=== PATIENT | male | born 1970 | race Caucasian/White ===

== ENCOUNTER 2024-05-11 13:36 | Inpatient (IN) | payer BC, SELFPAY ==
[2024-05-11] VITALS (11 sets, daily range): BP systolic 105–129; BP diastolic 72–99
--- NOTE | 2024-05-11 12:30 | ED.GENMED ---
History of Present Illness
General
Chief Complaint: Chest Pain
Source: patient
Exam Limitations: none
Time Seen by Provider: 05/11/24 12:29
Nursing documentation reviewed up to this point in time: agreed with
History of Present Illness
History of Present Illness:
53-year-old male presents emergency room complaining of chest pain began around 2 AM. It woke him from sleep. He continues with chest pain that is a dull ache. No prior medical history. He states he does not follow with a doctor. STEMI alert
called by Dr. Acosta upon reviewing EKG.
Past History
Past History
ED Past Medical History: None
ED Past Surgical History: Orthopedic (Right knee surgery arthroscopic)
Social History
Tobacco: Non-smoker
Alcohol: Occasional
Drug: None
Living: with family
Review of Systems
Review of Systems
Allergies reviewed?: Yes
All Other Systems: Not applicable
Constitutional: Reports no symptoms
EENT: Reports no symptoms
Respiratory: Reports no symptoms
Cardiac: Reports chest pain
ABD/GI: Reports no symptoms
: Reports no symptoms
Musculoskeletal: Reports no symptoms
Skin: Reports no symptoms
Neurological: Reports no symptoms
Endocrine: Reports no symptoms
Hematologic/Lymphatic: Reports no symptoms
Psychiatric: Reports no symptoms
Phy Exam
Physical Exam
Physical Exam:
Physical Exam
General: no apparent distress, not acutely ill
Neck: supple. no meningeal signs. normal posterior pharynx
Heart: s1/s2 regular rate and rhythm, no murmur. equal radial
pulses.
HEENT: Pupils equal round reactive to light, EOMI
Lungs: no acute respiratory distress. clear bilaterally
Abdomen: normal bowel sounds. not tender. no CVAT
Neuro: alert and oriented. no focal neurological deficits cranial nerves II through XII intact
Skin: no rash
Psychiatric: well kept. interactive and cooperative
Extremities: no edema. no calf tenderness. negative homans. good distal pulses
Scores
Heart Score for Chest Pain Patients
STEMI patient?: Yes
Course
Orders/Labs/Results
Orders:
Orders
05/11/24 Lunch
Cholesterol Lowering
At Your Request: Full Participation
Cholesterol Lowering: Sodium, 2 Gram
05/11/24 12:16
EKG [Electrocardiogram (*1)] Urgent
Reason for Study: Chest Pain
05/11/24 12:17
EKG- Treatment ONCE
05/11/24 12:29
IV Insert/Care/Rem.- Treatment PRN
05/11/24 12:31
Complete Blood Count/With Diff Urgent
Comprehensive Metabolic Panel Urgent
D-Dimer Urgent
Comment: ADD ON
PTT Urgent
Prothrombin Time Urgent
Troponin I Urgent
05/11/24 12:34
Aspirin Chewable [Low Strength Aspirin] 324 mg .ROUTE .STK-MED ONE
Heparin 5,000 units .ROUTE .STK-MED ONE
Ticagrelor [Brilinta] 180 mg .ROUTE .STK-MED ONE
05/11/24 13:18
Add On- LAB Urgent
Tests Added?: d dimer
05/11/24 13:19
Admit Patient As Directed
Co-Sign Provider:
Level of Care: Inpatient admission
Assign to:: IVU
Physician / Group: gaby/Sae
Diagnosis: chest pain
Reason for Hospitalization: chest pain
Expected length of stay greater than two midnights?: Yes
ELOS- Estimated Length of Stay in days: 2
I certify the patient meets the requirements for IP care: Yes
Code Status As Directed
Resuscitation Status: Full Code
Acetaminophen [Tylenol] 650 mg PO Q4HPRN PRN
Activity As Directed
Activity Level: Out of Bed- Ad Odalis
Activity Frequency: Ad Odalis
Account Supervisor Procedure As Directed
Cardiac Cath Procedure: cardiac catheterization
Notify MD As Directed
Notify physician if: immediately for chest pain or bleeding from access site(s)
Radial Artery Hemostasis Method As Directed
Instructions:: 3 mL out at 1 hour post placement of band
3 mL out at 1 1/2 hours post placement of band
3 mL out at 2 hours post placement of band
Off at 2 1/2 hours post placement of band
If any oozing or hemotoma occurs:: re-inflate band and call provider
Site Checks As Directed
Check access site for bleeding/hematoma: Yes
Comment: on arrival, Q15min x4, Q30min x2, Q1 hr x2, Q2 hr x2, Q4 hr or per
protocol
Vascular Checks As Directed
Location: distal to access site - pulse check
Frequency: Other
Comment: on arrival, Q15min x4, Q30min x2, Q1 hr x2, Q2 hr x2, Q4 hr or per protocol
Vital Signs As Directed
Frequency: Other
Additional Instructions:: on arrival, Q15min x4, Q30min x2, Q1 hr x2, Q2 hr x2, then Q4 hr or per unit
protocol
05/11/24 13:20
DX Deep Vein Thrombosis Video Routine
05/11/24 13:30
0.9% Sodium Chloride 1000 ml [Nss] 1,000 ml IV PER PROTOCOL
Infusion rate in mL/kg/hr:: 1.5
Infusion rate in mL/hr:: 129
Duration of infusion (hours):: 3
05/11/24 18:00
Troponin I Q6H
Atorvastatin [Lipitor] 40 mg PO QPM
Enoxaparin Sodium [Lovenox] 40 mg SC QPM
05/12/24 00:00
Troponin I Q6H
05/12/24 06:00
Echo 2D MMode Color/Doppler Routine
Reason for Study: chest pain, inferior st elevations
Cardiology Consult: Keon Quevedo
Electrocardiogram (*1) IN AM
Reason for Study: Chest Pain
Other Reason for Exam: post cath
Comment: dca
Basic Metabolic Panel IN AM
Cardiovascular Evaluation IN AM
Complete Blood Count/No Diff IN AM
Glycohemoglobin (HgbA1c) IN AM
Magnesium IN AM
Troponin I Q6H
05/12/24 08:00
Aspirin Chewable [Low Strength Aspirin] 81 mg PO DAILY
Pantoprazole [Protonix] 40 mg PO DAILY
Abnormal Lab Results
05/11/24 05/11/24
12:31 12:55
WBC 15.3 H 10^3/uL
(4.8-10.8)
Hgb 18.2 H g/dL
(13.0-18.0)
Abs Immat Gran (auto) 0.1 H 10^3/uL
(0-0.05)
Absolute Neuts (auto) 11.7 H 10^3/uL
(1.4-6.5)
Absolute Monos (auto) 1.9 H 10^3/uL
(0.1-0.6)
Immature Gran % 0.8 H %
(0-0.5)
Neutrophils % 76.2 H %
(42.2-75.2)
Lymphocytes % 9.9 L %
(20.5-51.1)
Monocytes % 12.5 H %
(1.7-9.3)
Glucose 112 H mg/dl
(70-99)
Total Bilirubin 1.8 H mg/dl
(0.2-1.3)
POC ACT Low Range 190 H Seconds
(116-155)
05/11/24 12:31
05/11/24 12:31
Vital Signs
Initial and Last Documented VS:
Initial Vital Signs
Temp Pulse Resp BP Pulse Ox
100.1 F 122 20 128/99 98
05/11/24 12:28 05/11/24 12:28 05/11/24 12:28 05/11/24 12:28 05/11/24 12:28
Last Documented Vital Signs
Temp Pulse Resp BP Pulse Ox
100.1 F 122 20 128/99 98
05/11/24 12:28 05/11/24 12:28 05/11/24 12:28 05/11/24 12:28 05/11/24 12:28
MDM/Problems Addressed
Differential Diagnosis Includes:
STEMI, myocarditis
MDM/Problems Addressed:
53-year-old male with STEMI. STEMI alert called. Dr. Quevedo to see patient.
*Pulse Oximetry
Patient hypoxic: no
*EKG
Interpreted by ED Provider?: Yes
EKG Intrepretation Date: 05/11/24
EKG Intrepretation Time: 12:19
Interpretation: abnormal
Comparison EKG: no comparison EKG present
Heart Rate: 117
Rate: tachycardiac
Rhythm: sinus tachycardia
[place]: normal axis
Interval: normal interval
QRS Pattern: normal QRS
Ischemia: ST elevation
*Staff Editor Interpretation
Rate: tachycardiac
Interpretation: abnormal
Heart Rate: 115
Rhythm: sinus tachycardia
*Critical Care Note
Total Time (30-74mins, 75-104mins- exclusive of procedures): Not Applicable
Patient Management
Social determinants of health affecting care: Living situation
Discussion with other providers: Jerker (cardiology Dr. Quevedo)
Escalation/DeEscalation of care consider admission/obs:
admit indicated
ED Attending Note
-
Portions of this chart may have been created with voice recognition software.� Occasional wrong word or��sound alike� substitutions may have occurred due to the inherent limitations of voice recognition software.
Discharge Plan
Departure
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
Date of Disposition: 05/11/24
Time of Disposition: 12:30
Admit to: labor law professor
Presentation/result/management discussed w/ accepting MD/DO: Dr. Quevedo, cardiology
Patient with high blood pressure during this ER visit?: Yes
Condition: Good
Discharge Problem:
ST elevation OR (STEMI)
Interventions
Interventions:
*Risk Screen - Suicide Last Done: 05/11/24 14:30
*General Assessment Last Done: 05/11/24 12:35
*Neglect/Abuse Screening Last Done: 05/11/24 12:35
ED- Fall Risk Assessment Last Done: 05/11/24 12:58
*ED COVID-19 Vaccine History Last Done: 05/11/24 14:16
*Nursing Disposition Last Done: 05/11/24 12:58
ED- Cardiac Assessment Last Done: 05/11/24 12:34
Discharge Date and Time
Discharge Date/Time: 05/11/24 12:55
--- NOTE | 2024-05-11 12:37 | HPS.HSE ---
Family Physician
-
PCP: none
CDY: none prior to admission, will follow with [facility]
Chief Complaint
-
right shoulder and chest pain
History of Present Illness
53 y/o white male, no sig PMH, non smoker, social alcohol 2-3x/month, does not follow with doctors. Developed right shoulder pain last evening while at rest. He went to bed and woke around 2AM with progressive shoulder pain now radiating to mid
sternal. Mild relief with aleve. He slept poorly the rest of the night. Today, he continued to have persistent pain now with dyspnea/sob, and presented to ER. Initial EKG with inferolateral ST elevations. Given 324mg aspirin, 180mg brilinta, and
5000u heparin. 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
Medical History
Past Medical History
Past Medical History: Reports GERD
Past Surgical History: Reports Orthopedic (Partial left rotator cuff tear (2020), Left ankle sprain with tendonitis (2018))
Social History
Tobacco: Smoker
Alcohol: Occasional
Drug: None
Living: With Family
Employment: Employed
Family History
Family History: Hypertension
Allergies / Home Medications
Allergies reflects when Allergies were last updated in [facility].
Home Medications with original date entered in [employer]
Allergy/Medication List:
NKDA
MEDS:
calcium carbonate 300mg QID PRN indigestion
Naproxen sodium 440mg BID PRN mild pain
Review of Systems
-
History Source: Patient
A 12 point ROS was completed and negative except as noted: Yes
Respiratory: Reports Trouble Breathing (mild dyspnea that's improved since arrival)
Cardiac: Reports Chest Pain (2-3 on arrival to lab)
Physical Exam
Vital Signs
Vital Signs
Temp Pulse Resp BP Pulse Ox
100.1 F 122 20 128/99 98
05/11/24 12:28 05/11/24 12:28 05/11/24 12:28 05/11/24 12:28 05/11/24 12:28
PE deferred d/t urgent nature of cath
Physical Exam
General: Well Developed and Obese
Data Reviewed
-
Medical Tests (Nuc Med, Echo, EKG etc): Image Personally Visualized and interpreted and Discussed with Physician
Lab Data: Labs Reviewed by me and Discussed with Physician
Impression/Plan
-
IMPRESSION:
Acute chest pain with inferolateral ST elevations
GERD
Left partial rotator cuff tear (2020)
Left ankle tendonitis/sprain (2017)
PLAN:
Urgent cath now
admit IVU post cath
trend troponin to peak
echo in AM
plan pending cath results
check lipid profile, start high intensity statin therapy
cardiac rehab consult
elevated glucose, check hgbA1C in AM
followup at [facility] at discharge
[2024-05-11 12:48] LABS: % Basophils 0.6 % (0-2); % Immature Granulocytes 0.8 % (0-0.5); % Lymphocytes 9.9 % (20.5-51.1); % Monocytes 12.5 % (1.7-9.3); % Neutrophils 76.2 % (42.2-75.2); Absolute Basophils 0.1 10^3/uL (0-0.2); Absolute Immature Granulocytes 0.1 10^3/uL (0-0.05); Absolute Lymphocytes 1.5 10^3/uL (1.2-3.4); Absolute Monocytes 1.9 10^3/uL (0.1-0.6); Absolute Neutrophils 11.7 10^3/uL (1.4-6.5); Hematocrit 50.7 % (39.0-52.0); Hemoglobin 18.2 g/dL (13.0-18.0); Mean Corp Hgb Conc. 35.9 g/dL (33.0-37.0); Mean Corpuscular Hgb 30.4 pg (27.0-31.0); Mean Corpuscular Volume 84.8 fL (80.0-94.0); Mean Platelet Volume 10.2 fL (7.4-10.4); Nucleated Red Blood Cells % 0 % (-); Platelet Count 285 10^3/uL (130-400); Red Blood Cell Count 5.98 10^6/uL (4.70-6.10); Red Cell Dist. Width 13.2 % (11.5-14.5); White Blood Cell Count 15.3 10^3/uL (4.8-10.8)
[2024-05-11 12:58] LABS: INR 0.99; PT 13.1 Sec (11.4-14.6)
[2024-05-11 12:59] LABS: APTT 28.3 Sec (23.4-35.0)
[2024-05-11 13:01] LABS: ACT-LR - POC 190 Seconds (116-155)
[2024-05-11 13:09] LABS: ALT (SGPT) 39 U/L (0-50); AST (SGOT) 27 U/L (17-59); Albumin 4.5 g/dl (3.5-5.0); Alkaline Phosphatase 116 U/L (38-126); Blood Urea Nitrogen 12 mg/dl (9-20); Calcium 9.8 mg/dl (8.4-10.2); Carbon Dioxide 30 mmol/L (22-30); Chloride 101 mmol/L (98-107); Glucose 112 mg/dl (70-99); Potassium 4.2 mmol/L (3.5-5.1); Sodium 139 mmol/L (135-145); Total Bilirubin 1.8 mg/dl (0.2-1.3); Total Protein 7.4 g/dl (6.3-8.2); eGFR > 60.00
[2024-05-11 13:16] LABS: Troponin I < 0.012 ng/ml
[2024-05-11] MEDS: TYLENOL 650 MG PO ×3 (13:50→22:46)
--- NOTE | 2024-05-11 13:52 | ITS.CL.CATH ---
[facility] - Catheterization
Cardiac Catheterization
Procedure Report:
LEFT HEART CATHETERIZATION
Date of Procedure: May 11, 2024
Referring: [facility] Emergency Department
PROCEDURES:
1. Left heart catheterization with coronary and JACKSON/ISRAELI ventriculography
INDICATION: This is a 53-year-old gentleman with no significant past medical history. He developed right shoulder discomfort last evening and went to bed. His symptoms awoke him around 2 AM with progressive pain now radiating to the mid sternum.
He experienced some mild relief with Aleve. He slept poorly for the rest of the night and he continued to have persistent discomfort with dyspnea and presented to [facility] emergency department for further evaluation. His
electrocardiogram was notable for inferolateral ST elevation and he was referred for emergent coronary angiography. Upon arrival to the cardiac catheterization laboratory he reported minimal but ongoing residual symptoms.
ACCESS: Right radial artery, 6 Yi sheath
HEMODYNAMICS : (mmHg)
AO (s/d) : 106/78, 91
LV (s/d) : 107/15
LVEDP : 18
CORONARY FINDINGS
DOMINANCE: Right
LEFT MAIN: Normal
LEFT ANTERIOR DESCENDING: The LAD arises normally from the left main and runs in the anterior interventricular groove. There is a myocardial bridge noted in the mid LAD with MAJOR-3 flow is appreciated into the distal LAD
CIRCUMFLEX: The circumflex is a medium to large caliber nondominant vessel. OM1 is very small. OM 2 is small. OM 3 is large and widely patent. The circumflex then continues in the AV groove supplying a small posterolateral branch.
RIGHT CORONARY ARTERY: The right coronary artery is a dominant vessel. There is a 50% proximal stenosis in the RCA that occurred following deep seating engagement of the diagnostic catheter. The catheter was withdrawn to the RCA ostium and
angiography was performed demonstrating the stenosis. Intracoronary nitroglycerin was administered and the stenosis in the proximal RCA completely resolved and was felt secondary to spasm related to catheter engagement. Minor irregularities are
present. The PDA is small and widely patent.
VENTRICULOGRAPHY: Left ventriculography was performed in JACKSON and ISRAELI projections. The digital single-plane left-ventricular ejection fraction is estimated at 55% and no regional wall motion abnormalities are appreciated
RADIATION SUMMARY: Fluoro Time (min): 5.7, Dose (mGy): 430.3, DAP (Gy.cm2) : 34.2
Closure Device: TR band
CONCLUSIONS
1. Nonobstructive coronary artery disease
2. Normal LV size and function with no regional wall motion normality
RECOMMENDATIONS
1. Patient will be admitted and serial troponin levels will be obtained.
2. Echocardiogram
3. May consider anti-inflammatory if pericarditis is considered possibility
Copy to: Dr. Keon Quevedo
[2024-05-11 14:09] LABS: D-Dimer < 0.27 ug/mlFEU (0.00-0.50)
[2024-05-11] MEDS: NSS 1000 IV (14:28)
--- NOTE | 2024-05-11 15:37 | PTCARENOTE ---
Pt received post cath at 1345. C/o of bilateral shoulder pain and mild chest discomfort with deep inspiration. Medicated with tylenol as ordered with relief. Right rad band intact and WNL. Remains in ST, rate in the 100's.
--- NOTE | 2024-05-11 16:16 | CM ---
Reviewed chart. Met with Mr. Miranda to review discharge plans. He states prior to admission he resides alone in a spilt level home without any steps to enter. He states he has six steps to get to each level. He states his bedroom/full bathroom
is on the second floor. He states his powder room is on the lower level. He states prior to admission he was independent with ambulation and adls. He states he does not have any DME in the home. He states he has a prescription plan. Medical
work-up in progress. The discharge plan is to return home when medically stable.
[2024-05-11] MEDS: LOVENOX 40 MG SC (17:16)
[2024-05-11] MEDS: LIPITOR 40 MG PO (17:16)
[2024-05-11 18:41] LABS: Troponin I < 0.012 ng/ml
--- NOTE | 2024-05-11 21:06 | PTCARENOTE ---
Pt still with mild complaints of b/l shoulder and back pain he states is manageable with Tylenol at this time. plan of care for the evening discussed. VSS. ST on the monitor. no complaints of dizziness or lightheadedness.
[2024-05-12 02:22] VITALS: BP 135/80
[2024-05-12] MEDS: TYLENOL 650 MG PO (02:29)
[2024-05-12 02:43] LABS: Hematocrit 41.9 % (39.0-52.0); Hemoglobin 15.8 g/dL (13.0-18.0); Mean Corp Hgb Conc. 37.7 g/dL (33.0-37.0); Mean Corpuscular Hgb 30.4 pg (27.0-31.0); Mean Corpuscular Volume 80.6 fL (80.0-94.0); Mean Platelet Volume 9.8 fL (7.4-10.4); Platelet Count 247 10^3/uL (130-400); Red Cell Dist. Width 13.2 % (11.5-14.5); White Blood Cell Count 11.5 10^3/uL (4.8-10.8)
[2024-05-12 03:07] LABS: Blood Urea Nitrogen 11 mg/dl (9-20); Calcium 8.9 mg/dl (8.4-10.2); Carbon Dioxide 24 mmol/L (22-30); Chloride 106 mmol/L (98-107); Estimated Creatinine Clearance 109 ml/min; Glucose 116 mg/dl (70-99); HDL Cholesterol 51 mg/dl; LDL Cholesterol, Calculated 80 mg/dl; Magnesium 2.2 mg/dl (1.6-2.3); Potassium 3.7 mmol/L (3.5-5.1); Sodium 136 mmol/L (135-145); Total Cholesterol 152 mg/dl (50-199); Triglyceride 108 mg/dl (10-149); Very Low Density Lipoprotein 21 mg/dl (0-30); eGFR > 60.00
[2024-05-12 03:28] LABS: Troponin I 0.038 ng/ml
[2024-05-12 06:57] VITALS: BP 122/84
[2024-05-12] MEDS: MOTRIN 600 MG PO (08:35)
[2024-05-12] MEDS: LOW STRENGTH ASPIRIN 81 MG PO (08:36)
[2024-05-12] MEDS: COLCHICINE 0.599999999999999978 MG PO (08:36)
[2024-05-12] MEDS: PROTONIX 40 MG PO (08:36)
[2024-05-12 08:41] LABS: Glycohemoglobin (HgbA1c) 4.8 % (4.0-5.6)
[2024-05-12 09:17] LABS: Troponin I 0.109 ng/ml
--- NOTE | 2024-05-12 09:22 | PTCARENOTE ---
Rec'd pt this shift awake and alert in bed. Pt NSR on monitor. Pt states pain in shoulders is better. ECHO done as ordered. AM meds given. See worklist for VS/I and O and assessments.
--- NOTE | 2024-05-12 09:58 | W.PN.CARDCBS ---
Addendum entered and electronically signed by Lon Carter MD 05/12/24 14:26:
I saw and examined the patient.
The Electrical Apprentice's note was reviewed and I agree with the note.
Comment:
GEN: No distress, awake, Ox3
HEENT: supple, anicteric, mmm
LUNGS: CTA, no wheezes/rales
CV: Reg, S1/S2, 1/6 syst LSB, no gallop
ABD: soft, BS+, NT/ND
EXT: No edema
NEURO: Gross non-focal
SKIN: No rash
Plan:
Cardiac cath was reviewed with no obstructive coronary artery disease. EKG more consistent with pericarditis. Echocardiogram with no pericardial effusion and preserved wall motion.
Will treat for pericarditis at this time. Colchicine 0.6 mg p.o. twice daily and Motrin for 1 week. Would reassess in office in 4 to 6 weeks to start weaning off colchicine.
Abnormal troponin is likely nonischemic myocardial injury from possible pericarditis.
LDL is 80. I would hold off on statin therapy for now.
Original Note:
Today's Communication / Plan
-
Echo today
start pericarditis treatment (colchicine/Motrin)
continue to monitor on tele
Impression / Plan
-
PCP: None
CDY: Keon Quevedo (new to pt)
53-year-old gentleman with no significant past medical history. He developed right shoulder discomfort last evening and went to bed. His symptoms awoke him around 2 AM with progressive pain now radiating to the mid sternum. He experienced some
mild relief with Aleve. He slept poorly for the rest of the night and he continued to have persistent discomfort with dyspnea and presented to [facility] emergency department for further evaluation. His electrocardiogram was notable for
inferolateral ST elevation and he was referred for emergent coronary angiography. Upon arrival to the cardiac catheterization laboratory he reported minimal but ongoing residual symptoms.
IMPRESSION:
Acute chest pain with inferolateral ST elevations
Acute Non ischemic myocardial injury/Pericarditis
GERD
Left partial rotator cuff tear (2020)
Left ankle tendonitis/sprain (2017)
PLAN:
Cardiac cath with non obstructive CAD no WMA
probable idiopathic pericarditis - denies any recent infections, viral illness or trauma to chest
tele so significant ectopy
Rad site stable, still with some chest pain o/n, currently denies pain
troponin neg x 2 then mild elevation 0.1, will continue to trend to peak
Will start colchicine 0.6 bid and Motrin 600mg q8
HR 90-110, will start toprol 25mg
continue PPI
stop ASA
elevated glucose, hgbA1C 4.8
followup at [facility] 2-4 weeks at d/c
continue to monitor on tele, poss d/c home later today or tomorrow
Progress Note - Chief Compliance Officer
Subjective
Date of Service: May 12, 2024
denies cp, sob
Objective
Labs:
05/12/24 02:28
05/12/24 02:28
Labs
Hgb 15.8 g/dL (13.0-18.0) 05/12/24 02:28
Hct 41.9 % (39.0-52.0) 05/12/24 02:28
Plt Count 247 10^3/uL (130-400) 05/12/24 02:28
PT 13.1 Sec (11.4-14.6) 05/11/24 12:31
INR 0.99 05/11/24 12:31
APTT 28.3 Sec (23.4-35.0) 05/11/24 12:31
Sodium 136 mmol/L (135-145) 05/12/24 02:28
Potassium 3.7 mmol/L (3.5-5.1) 05/12/24 02:28
BUN 11 mg/dl (9-20) 05/12/24 02:28
Creatinine 0.8 mg/dL (0.7-1.3) 05/12/24 02:28
Glucose 116 mg/dl (70-99) H 05/12/24 02:28
Troponins
05/11/24 05/11/24 05/12/24
12:31 18:07 02:28
Troponin I < 0.012 < 0.012 0.038 H*
05/12/24
08:32
Troponin I 0.109 H* D
Vital Signs and I&O:
Vital Signs
Temp Pulse Resp BP Pulse Ox
98.4 F 94 18 122/84 98
05/12/24 06:55 05/12/24 07:00 05/12/24 06:55 05/12/24 06:57 05/12/24 09:18
Vital Signs
Temp Pulse Resp BP Pulse Ox
98.4 F 94 18 122/84 98
05/12/24 06:55 05/12/24 07:00 05/12/24 06:55 05/12/24 06:57 05/12/24 09:18
Physical Exam
Physical Exam
NAD, AOX3
S1, S2, RRR
CTAB< non labored, no wheeze
SNTND Bsx4
R rad site c/d/i no HT, good pulse
[2024-05-12] MEDS: TOPROL XL 25 MG PO (10:59)
[2024-05-12 11:38] VITALS: BP 106/71
--- NOTE | 2024-05-12 14:07 | W.DS.TRANS ---
DC Summary - Safety Engineer
-
Discharge Instructions:
Discharge Diagnosis/Procedures cardiac catheterization
Diet Low Cholesterol
Driving Restrictions No driving for 24 hours
Instructions:
Stand-Alone Forms: DC Instructions- Cath/EP Lab
Changes to Home Medications: Yes
Discharge Medications:
DC Medications w/original date entered in [employer]
calcium carbonate (Tums) 300 mg PO QIDPRN PRN acid reflux 05/11/24
famotidine 20 mg tablet (Pepcid) 20 mg PO PRN PRN indigestion 05/11/24
naproxen sodium 220 mg tablet (Aleve) 440 mg PO BID PRN mild pain 05/11/24
colchicine 0.6 mg tablet 0.6 mg PO BID #60 tabs 05/12/24
ibuprofen 600 mg tablet 600 mg PO Q8 #30 tabs 05/12/24
metoprolol succinate 25 mg tablet,extended release 24 hr 25 mg PO DAILY #30 tabs 05/12/24
Home Medication Changes
new to toprol, colchicine, motrin
Pending Results: No
--- NOTE | 2024-05-12 14:56 | PTCARENOTE ---
discharge instructions given to patient. INT d/c'd.
== END 2024-05-12 15:21 | disposition home or self-care (01) | DRG 287 ==
LOC: IVU 13:36
PROVIDERS: Nurse Practitioner; ADMITTING PHYSICIAN Internal Medicine Interventional Cardiology; EMERGENCY PHYSICIAN Emergency Medicine
PROC: B2111ZZ Fluoroscopy of Multiple Coronary Arteries using Low Osmolar Contrast (ICD-10-PCS; 2024-05-11)
PROC: 4A023N7 Measurement of Cardiac Sampling and Pressure, Left Heart, Percutaneous Approach (ICD-10-PCS; 2024-05-11)
PROC: B2151ZZ Fluoroscopy of Left Heart using Low Osmolar Contrast (ICD-10-PCS; 2024-05-11)
DX: I31.9 Disease of pericardium, unspecified (principal); I5A Non-ischemic myocardial injury (non-traumatic); K21.9 Gastro-esophageal reflux disease without esophagitis
CPT/HCPCS: 80048; 80053; 80061; 83036; 83735; 84484; 85025; 85027; 85347; 85379; 85610; 85730; 93005; 93306; 93458; 99284; C1894; Q9967

== ENCOUNTER → 2024-11-02 08:20 | Outpatient (REF) | payer BC, SELFPAY | LOC: HWRCS 08:20 | PROVIDERS: ATTENDING PHYSICIAN Nuclear Medicine Nuclear Cardiology | DX: I30.0 Acute nonspecific idiopathic pericarditis (principal) | CPT/HCPCS: 93306 ==